=== PATIENT | male | born 1990 | race Hispanic/Latino ===

== ENCOUNTER 2020-06-24 23:16 | Inpatient (IN) | payer OTHER ==
[2020-06-25] MEDS ORDERED: Ketorolac Tromethamine 30 MG/ML VIAL ONE (00:13)
[2020-06-25 00:38] LABS: Hemoglobin 15.7 g/dL (14.0-18.0); Mean Corpuscular HGB CONC 34.6 g/dL (32.0-36.0); Mean Corpuscular Volume 98.3 fL (78.0-98.0); Mean Platelet Volume 6.2 fL (7.4-10.4); Platelet Count 239 thou/uL (130-400); RBC Distribution Width 11.4 % (11.5-14.5); White Blood Cell (WBC) Count 8.8 thou/uL (4.8-10.8)
[2020-06-25 00:55] LABS: ALT (SGPT) 21 U/L (8-55); AST (SGOT) 24 U/L (5-34); Albumin 3.8 g/dL (3.5-5.0); Alkaline Phosphatase 61 U/L (40-110); Anion Gap 14 mmol/L (10-20); BUN (Urea Nitrogen) 8 mg/dL (8.9-20.6); Bilirubin, Total 2.1 mg/dL (0.2-1.2); Calc. Creatinine Clearance 0 mL/min (70-130); Calcium 9.3 mg/dL (7.8-10.44); Carbon Dioxide 24 mmol/L (22-29); Chloride 103 mmol/L (98-107); Glucose 97 mg/dL (70-105); Potassium 3.3 mmol/L (3.5-5.1); Protein, Total 6.8 g/dL (6.0-8.3); Sodium 138 mmol/L (136-145)
[2020-06-25 00:58] LABS: Band 4 % (5-11); Lymphocytes 3 % (21-51); MDiff Complete? YES; Metamyelocyte 7 % (0-0); Neutrophil 86 % (42-75); Platelet Morphology Comment Appears Adequate
[2020-06-25] MEDS ORDERED: Ondansetron PF 4 MG/2 ML Vial ONE (01:41)
[2020-06-25] MEDS ORDERED: Piperacillin/Tazobactam 4.5 GM VIAL ONE (01:41)
[2020-06-25 04:29] VITALS: BMI 31.7
[2020-06-25] MEDS: Vancomycin 1.5 GRAM/300 ML BAG 1.5 GM in Premix Bag 1 BAG IVPB SCH ×2 (04:49→16:42)
[2020-06-25] MEDS: Sodium Chloride 0.9% 1,000 ML IV SCH ×2 (04:49→14:21)
[2020-06-25] MEDS: Enoxaparin Sodium 40 MG/0.4 ML SYRINGE SC SCH (08:17)
[2020-06-25 08:43] LABS: SARS-CoV-2 PCR by NAA Not Detected (NotDetected)
[2020-06-25] MEDS ORDERED: Vancomycin 1.5 GRAM/300 ML BAG 1.5 GM in Premix Bag 1 BAG IVPB SCH (09:00)
[2020-06-25] MEDS: Piperacillin/Tazobactam 4.5 GM in Sodium Chloride 0.9% 100 ML IVPB SCH ×2 (09:04→19:22)
[2020-06-25] MEDS: Acetaminophen 325 MG/10.15 ML UDCUP PO PRN ×2 (10:36→16:42)
[2020-06-25] MEDS ORDERED: Iopamidol-370 76% 500 ML 1 ML ONE (12:59)
[2020-06-25] MEDS: Ibuprofen 200 MG TAB PO PRN (14:25)
[2020-06-26] MEDS: Acetaminophen 325 MG/10.15 ML UDCUP PO PRN (00:22)
[2020-06-26] MEDS: Sodium Chloride 0.9% 1,000 ML IV SCH ×3 (00:23→16:22)
[2020-06-26] MEDS: Piperacillin/Tazobactam 4.5 GM in Sodium Chloride 0.9% 100 ML IVPB SCH ×2 (02:37→09:21)
[2020-06-26] MEDS: Vancomycin 1.5 GRAM/300 ML BAG 1.5 GM in Premix Bag 1 BAG IVPB SCH (05:47)
[2020-06-26] MEDS: Ibuprofen 200 MG TAB PO PRN (05:55)
[2020-06-26 06:08] LABS: #Lymphocytes 0.6 thou/uL (1.20-3.40); #Monocytes 0.8 thou/uL (0.11-0.59); #Neutrophils 10.2 thou/uL (1.40-6.50); %Basophils 0.1 % (0.0-1.0); %Eosinophils 0.1 % (0.0-10.0); %Lymphocytes 4.8 % (21.0-51.0); %Monocytes 6.8 % (0.0-10.0); %Neutrophils 88.2 % (42.0-75.0); Hemoglobin 13.3 g/dL (14.0-18.0); Mean Corpuscular HGB CONC 34.2 g/dL (32.0-36.0); Mean Corpuscular Volume 99.5 fL (78.0-98.0); Platelet Count 194 thou/uL (130-400); RBC Distribution Width 11.5 % (11.5-14.5); Red Blood Cell (RBC) Count 3.91 mill/uL (4.70-6.10); White Blood Cell (WBC) Count 11.6 thou/uL (4.8-10.8)
[2020-06-26 06:23] LABS: Anion Gap 11 mmol/L (10-20); BUN (Urea Nitrogen) 5 mg/dL (8.9-20.6); Calc. Creatinine Clearance 170 mL/min (70-130); Carbon Dioxide 22 mmol/L (22-29); Chloride 109 mmol/L (98-107); Glucose 157 mg/dL (70-105); Potassium 3.8 mmol/L (3.5-5.1); Sodium 138 mmol/L (136-145)
[2020-06-26] MEDS ORDERED: Ketorolac Tromethamine 30 MG/ML VIAL IVP SCH (08:15)
[2020-06-26] MEDS: Enoxaparin Sodium 40 MG/0.4 ML SYRINGE SC SCH ×2 (09:10→10:25)
[2020-06-26] MEDS ORDERED: Iopamidol-370 76% 500 ML 1 ML ONE (09:14)
[2020-06-26] MEDS: MEROPENEM 1 GM/50 ML 1 GM in Premix Bag 1 BAG IVPB SCH ×2 (13:02→21:35)
[2020-06-26] MEDS: Acetaminophen 650 MG/20.3 ML UDCUP PO PRN ×2 (16:09→21:35)
[2020-06-26] MEDS: Ketorolac Tromethamine 30 MG/ML VIAL IVP PRN (18:15)
[2020-06-26] MEDS: Temazepam 15 MG CAP PO PRN (21:35)
[2020-06-27] MEDS: Ketorolac Tromethamine 30 MG/ML VIAL IVP PRN ×2 (00:06→08:49)
[2020-06-27] MEDS: Sodium Chloride 0.9% 1,000 ML IV SCH ×4 (02:51→20:56)
[2020-06-27] MEDS: MEROPENEM 1 GM/50 ML 1 GM in Premix Bag 1 BAG IVPB SCH ×3 (04:21→20:54)
[2020-06-27 05:55] LABS: #Lymphocytes 0.8 thou/uL (1.20-3.40); #Monocytes 0.6 thou/uL (0.11-0.59); #Neutrophils 7.6 thou/uL (1.40-6.50); %Basophils 0.1 % (0.0-1.0); %Eosinophils 0.5 % (0.0-10.0); %Lymphocytes 8.6 % (21.0-51.0); %Monocytes 6.9 % (0.0-10.0); Hemoglobin 12.4 g/dL (14.0-18.0); Mean Corpuscular HGB CONC 33.9 g/dL (32.0-36.0); Mean Corpuscular Hemoglobin 33.5 pg (27.0-31.0); Mean Platelet Volume 6.8 fL (7.4-10.4); Platelet Count 205 thou/uL (130-400); RBC Distribution Width 11.4 % (11.5-14.5)
[2020-06-27 06:12] LABS: Anion Gap 13 mmol/L (10-20); BUN (Urea Nitrogen) 4 mg/dL (8.9-20.6); Calc. Creatinine Clearance 185 mL/min (70-130); Calcium 8.2 mg/dL (7.8-10.44); Carbon Dioxide 20 mmol/L (22-29); Chloride 110 mmol/L (98-107); Glucose 149 mg/dL (70-105); Potassium 3.6 mmol/L (3.5-5.1); Sodium 139 mmol/L (136-145)
[2020-06-27] MEDS ORDERED: Fioricet 325/50/40 mg Tablet PO SCH (08:45)
[2020-06-27] MEDS: Enoxaparin Sodium 40 MG/0.4 ML SYRINGE SC SCH (08:48)
[2020-06-27] MEDS: Fioricet 325/50/40 mg Tablet PO PRN ×2 (16:28→22:38)
[2020-06-27] MEDS: Temazepam 15 MG CAP PO PRN (22:38)
[2020-06-28] MEDS: MEROPENEM 1 GM/50 ML 1 GM in Premix Bag 1 BAG IVPB SCH ×3 (04:57→20:11)
[2020-06-28] MEDS: Sodium Chloride 0.9% 1,000 ML IV SCH ×3 (04:57→20:11)
[2020-06-28 08:12] LABS: #Lymphocytes 1.1 thou/uL (1.20-3.40); #Monocytes 0.8 thou/uL (0.11-0.59); #Neutrophils 5.8 thou/uL (1.40-6.50); %Basophils 0.6 % (0.0-1.0); %Eosinophils 0.4 % (0.0-10.0); %Lymphocytes 13.7 % (21.0-51.0); %Neutrophils 75.3 % (42.0-75.0); Hemoglobin 13.1 g/dL (14.0-18.0); Mean Corpuscular HGB CONC 33.9 g/dL (32.0-36.0); Mean Corpuscular Hemoglobin 33.2 pg (27.0-31.0); Mean Platelet Volume 6.7 fL (7.4-10.4); Platelet Count 256 thou/uL (130-400); RBC Distribution Width 11.6 % (11.5-14.5); Red Blood Cell (RBC) Count 3.95 mill/uL (4.70-6.10); White Blood Cell (WBC) Count 7.7 thou/uL (4.8-10.8)
[2020-06-28 08:28] LABS: Anion Gap 14 mmol/L (10-20); BUN (Urea Nitrogen) 6 mg/dL (8.9-20.6); Calc. Creatinine Clearance 160 mL/min (70-130); Calcium 8.7 mg/dL (7.8-10.44); Carbon Dioxide 23 mmol/L (22-29); Chloride 107 mmol/L (98-107); Glucose 98 mg/dL (70-105); Potassium 3.6 mmol/L (3.5-5.1); Sodium 140 mmol/L (136-145)
[2020-06-28] MEDS: Ketorolac Tromethamine 30 MG/ML VIAL IVP PRN (09:15)
[2020-06-28] MEDS: Enoxaparin Sodium 40 MG/0.4 ML SYRINGE SC SCH (09:17)
[2020-06-28] MEDS: Fioricet 325/50/40 mg Tablet PO PRN ×4 (09:27→22:31)
[2020-06-28] MEDS: Temazepam 15 MG CAP PO PRN (22:32)
[2020-06-29] MEDS ORDERED: diphenhydrAMINE 25 MG CAP PO SCH (01:15)
[2020-06-29] MEDS: Fioricet 325/50/40 mg Tablet PO PRN ×5 (01:58→22:46)
[2020-06-29] MEDS: Sodium Chloride 0.9% 1,000 ML IV SCH ×3 (05:03→18:02)
[2020-06-29] MEDS: MEROPENEM 1 GM/50 ML 1 GM in Premix Bag 1 BAG IVPB SCH ×3 (06:04→22:44)
[2020-06-29 08:31] LABS: #Basophils 0.1 thou/uL (0.0-0.2); #Eosinphils 0.1 thou/uL (0.0-0.7); #Lymphocytes 1.8 thou/uL (1.20-3.40); #Monocytes 1.2 thou/uL (0.11-0.59); #Neutrophils 6.1 thou/uL (1.40-6.50); %Basophils 0.7 % (0.0-1.0); %Lymphocytes 19.4 % (21.0-51.0); %Monocytes 13.3 % (0.0-10.0); %Neutrophils 65.6 % (42.0-75.0); Hemoglobin 13.6 g/dL (14.0-18.0); Mean Corpuscular HGB CONC 33.2 g/dL (32.0-36.0); Mean Corpuscular Hemoglobin 32.2 pg (27.0-31.0); Mean Corpuscular Volume 97.2 fL (78.0-98.0); Mean Platelet Volume 6.2 fL (7.4-10.4); Platelet Count 291 thou/uL (130-400); RBC Distribution Width 11.6 % (11.5-14.5); Red Blood Cell (RBC) Count 4.22 mill/uL (4.70-6.10); White Blood Cell (WBC) Count 9.3 thou/uL (4.8-10.8)
[2020-06-29 08:51] LABS: Anion Gap 13 mmol/L (10-20); BUN (Urea Nitrogen) 7 mg/dL (8.9-20.6); Calc. Creatinine Clearance 176 mL/min (70-130); Calcium 9.1 mg/dL (7.8-10.44); Carbon Dioxide 25 mmol/L (22-29); Chloride 106 mmol/L (98-107); Glucose 88 mg/dL (70-105); Potassium 3.5 mmol/L (3.5-5.1); Sodium 140 mmol/L (136-145)
[2020-06-29] MEDS: Enoxaparin Sodium 40 MG/0.4 ML SYRINGE SC SCH (09:18)
[2020-06-29] MEDS: Temazepam 15 MG CAP PO PRN (22:44)
[2020-06-30] MEDS: MEROPENEM 1 GM/50 ML 1 GM in Premix Bag 1 BAG IVPB SCH ×3 (05:07→19:57)
[2020-06-30] MEDS: Sodium Chloride 0.9% 1,000 ML IV SCH ×3 (05:07→19:57)
[2020-06-30] MEDS: Fioricet 325/50/40 mg Tablet PO PRN ×3 (08:23→21:37)
[2020-06-30] MEDS: Enoxaparin Sodium 40 MG/0.4 ML SYRINGE SC SCH (08:24)
[2020-06-30 08:33] LABS: #Basophils 0.1 thou/uL (0.0-0.2); #Eosinphils 0.1 thou/uL (0.0-0.7); #Lymphocytes 2.2 thou/uL (1.20-3.40); #Monocytes 1.1 thou/uL (0.11-0.59); #Neutrophils 6.6 thou/uL (1.40-6.50); %Basophils 0.6 % (0.0-1.0); %Eosinophils 1.1 % (0.0-10.0); %Lymphocytes 21.6 % (21.0-51.0); %Monocytes 11.1 % (0.0-10.0); %Neutrophils 65.6 % (42.0-75.0); Hemoglobin 14.2 g/dL (14.0-18.0); Mean Corpuscular HGB CONC 33.7 g/dL (32.0-36.0); Mean Corpuscular Hemoglobin 32.7 pg (27.0-31.0); Mean Corpuscular Volume 96.9 fL (78.0-98.0); Mean Platelet Volume 6.1 fL (7.4-10.4); Platelet Count 331 thou/uL (130-400); RBC Distribution Width 11.6 % (11.5-14.5); Red Blood Cell (RBC) Count 4.35 mill/uL (4.70-6.10); White Blood Cell (WBC) Count 10.1 thou/uL (4.8-10.8)
[2020-06-30 08:52] LABS: Anion Gap 13 mmol/L (10-20); BUN (Urea Nitrogen) 8 mg/dL (8.9-20.6); Calc. Creatinine Clearance 176 mL/min (70-130); Calcium 9.1 mg/dL (7.8-10.44); Carbon Dioxide 22 mmol/L (22-29); Chloride 107 mmol/L (98-107); Glucose 89 mg/dL (70-105); Sodium 138 mmol/L (136-145)
[2020-06-30] MEDS: Temazepam 15 MG CAP PO PRN (21:37)
[2020-07-01] MEDS: Sodium Chloride 0.9% 1,000 ML IV SCH ×3 (03:36→20:12)
[2020-07-01] MEDS: MEROPENEM 1 GM/50 ML 1 GM in Premix Bag 1 BAG IVPB SCH ×3 (04:24→20:13)
[2020-07-01] MEDS: Fioricet 325/50/40 mg Tablet PO PRN ×3 (07:07→20:11)
[2020-07-01] MEDS: Enoxaparin Sodium 40 MG/0.4 ML SYRINGE SC SCH (07:59)
[2020-07-01] MEDS: Temazepam 15 MG CAP PO PRN (21:36)
[2020-07-02] MEDS: Sodium Chloride 0.9% 1,000 ML IV SCH ×3 (03:05→22:38)
[2020-07-02] MEDS: MEROPENEM 1 GM/50 ML 1 GM in Premix Bag 1 BAG IVPB SCH ×3 (05:28→20:43)
[2020-07-02] MEDS: Enoxaparin Sodium 40 MG/0.4 ML SYRINGE SC SCH (07:58)
[2020-07-02] MEDS: Fioricet 325/50/40 mg Tablet PO PRN ×2 (07:59→17:50)
[2020-07-02] MEDS: Temazepam 15 MG CAP PO PRN (22:37)
[2020-07-03] MEDS: Acetaminophen 650 MG/20.3 ML UDCUP PO PRN (00:33)
[2020-07-03] MEDS: MEROPENEM 1 GM/50 ML 1 GM in Premix Bag 1 BAG IVPB SCH ×3 (04:25→20:32)
[2020-07-03] MEDS: Fioricet 325/50/40 mg Tablet PO PRN ×2 (09:05→21:59)
[2020-07-03] MEDS: Enoxaparin Sodium 40 MG/0.4 ML SYRINGE SC SCH (09:05)
[2020-07-03] MEDS: Sodium Chloride 0.9% 1,000 ML IV SCH ×3 (09:05→19:47)
[2020-07-03] MEDS: Temazepam 15 MG CAP PO PRN (21:59)
[2020-07-04] MEDS: Sodium Chloride 0.9% 1,000 ML IV SCH ×2 (04:08→11:04)
[2020-07-04] MEDS: MEROPENEM 1 GM/50 ML 1 GM in Premix Bag 1 BAG IVPB SCH ×2 (05:30→13:35)
[2020-07-04] MEDS: Enoxaparin Sodium 40 MG/0.4 ML SYRINGE SC SCH (08:45)
[2020-07-04] MEDS: Fioricet 325/50/40 mg Tablet PO PRN (11:03)
[2020-07-04 11:36] VITALS: TEMP 97.6
[2020-07-04 15:41] VITALS: BP 115/75
== END 2020-07-04 17:59 | disposition home or self-care (01) | DRG 301 ==
LOC: ERS 23:16 → SURG A 06-25 02:29 → OBSVTOIN 06-25 02:29
PROVIDERS: ADMIT Internal Medicine; ATTEND Internal Medicine
DX: I80.8 Phlebitis and thrombophlebitis of other sites (principal); R59.0 Localized enlarged lymph nodes; J02.9 Acute pharyngitis, unspecified; K11.20 Sialoadenitis, unspecified; Z20.822 Contact with and (suspected) exposure to COVID-19; Z98.890 Other specified postprocedural states
CPT/HCPCS: 36415; 70491; 71260; 76536; 76705; 80048; 80053; 83605; 83735; 85025; 87040; 87635; 94760; 96365; 96366; 96367; 96372; 96375; 96376; G0378; J1650; J1885; J2185; J2405; J2543; J3370; J3490; Q0163; Q9967; U0003; U0005

== ENCOUNTER 2020-08-08 13:50 | Outpatient (CLI) | payer OTHER | END 2020-08-08 13:51 | disposition home or self-care (01) | LOC: BICULT 13:50 | PROVIDERS: ATTEND Internal Medicine Infectious Disease | DX: R51.9 Headache, unspecified (principal); H53.8 Other visual disturbances; I82.C11 Acute embolism and thrombosis of right internal jugular vein | CPT/HCPCS: 70450 ==

== ENCOUNTER 2020-09-13 20:22 | Emergency (ER) | payer OTHER ==
[2020-09-13] MEDS ORDERED: Ibuprofen 200 MG TAB ONE (22:11)
== END 2020-09-13 22:17 | disposition home or self-care (01) ==
LOC: ERS 20:22
DX: S29.011A Strain of muscle and tendon of front wall of thorax, initial encounter (principal); X58.XXXA Exposure to other specified factors, initial encounter
CPT/HCPCS: 99283

== ENCOUNTER 2022-06-04 08:41 | Outpatient (CLI) | payer OTHER ==
[2022-06-04 10:04] LABS: #Basophils 0.1 10x3/uL (0.0-0.2); #Eosinphils 0.1 10x3/uL (0.0-0.5); #Monocytes 0.4 10x3/uL (0.0-1.1); #Neutrophils 3.4 10x3/uL (1.5-8.4); %Basophils 0.9 % (0.0-2.0); %Eosinophils 1.1 % (0.0-6.0); %Lymphocytes 29.7 % (18.0-47.0); %Monocytes 6.5 % (0.0-10.0); %Neutrophils 61.4 % (40.0-75.0); Hemoglobin 16.2 g/dL (13.5-17.5); Mean Corpuscular HGB CONC 35.6 g/dL (32.0-36.0); Mean Corpuscular Hemoglobin 31.5 pg (27.0-33.0); Mean Corpuscular Volume 88.5 fl (81.2-95.1); Mean Platelet Volume 8.9 fl (7.4-10.4); Platelet Count 329 10x3/uL (150-450); RBC Distribution Width 11.4 % (11.5-14.5); Red Blood Cell (RBC) Count 5.14 10x6/uL (4.32-5.72); White Blood Cell (WBC) Count 5.5 10x3/uL (3.5-10.5)
[2022-06-04 10:18] LABS: Anion Gap 16 mmol/L (10-20); BUN (Urea Nitrogen) 16 mg/dL (8.9-20.6); Calc. Creatinine Clearance 0 mL/min (70-130); Calcium 9.3 mg/dL (7.8-10.44); Carbon Dioxide 23 mmol/L (22-29); Chloride 106 mmol/L (98-107); Estimated GFR 76; Glucose 98 mg/dL (70-105); Potassium 4.5 mmol/L (3.5-5.1); Sodium 140 mmol/L (136-145)
== END 2022-06-04 08:42 | disposition home or self-care (01) ==
LOC: LABBT 08:41
PROVIDERS: ATTEND Surgery
DX: Z01.812 Encounter for preprocedural laboratory examination (principal); K62.0 Anal polyp
CPT/HCPCS: 80048; 85025

== ENCOUNTER 2022-06-12 07:17 | Day surgery (SDC) | payer OTHER ==
[2022-06-12] MEDS ORDERED: Lidocaine Jelly 2% Urojet 10 ML ONE (08:08)
[2022-06-12] MEDS ORDERED: Lidocaine 2% 6 ML SYR ONE (08:08)
[2022-06-12] MEDS ORDERED: Bupivacaine 0.25% HCL 30 ML VIAL ONE (08:08)
[2022-06-12] MEDS ORDERED: EPINEPHrine 1 MG/ML AMP ONE (08:08)
[2022-06-12] MEDS ORDERED: cefOXitin 2 GM VIAL ONE (08:27)
[2022-06-12] MEDS ORDERED: Sodium Chloride 0.9% 100 ML ONE (08:27)
[2022-06-12] MEDS ORDERED: fentaNYL 50 mcg/mL 1 mL Vial ONE (08:50)
[2022-06-12] MEDS ORDERED: PROPOFOL 200 MG/20 ML VIAL ONE (09:00)
[2022-06-12] MEDS ORDERED: Ketorolac Tromethamine 30 MG/ML VIAL ONE (09:00)
[2022-06-12] MEDS ORDERED: Ondansetron PF 4 MG/2 ML Vial ONE (09:00)
[2022-06-12] MEDS ORDERED: Dexamethasone 20 MG/5 ML VIAL ONE (09:00)
[2022-06-12] MEDS ORDERED: HYDROcodone/Acetaminophen 5/325 mg Tablet ONE (11:12)
== END 2022-06-12 11:55 | disposition home or self-care (01) ==
LOC: SDC 07:17
PROVIDERS: ATTEND Surgery
PROC: 0DQQ7ZZ Repair Anus, Via Natural or Artificial Opening (ICD-10-PCS; principal; 2022-06-12)
PROC: 0DBQ7ZX Excision of Anus, Via Natural or Artificial Opening, Diagnostic (ICD-10-PCS; principal; 2022-06-12)
DX: K62.0 Anal polyp (principal); K60.3 Anal fistula
CPT/HCPCS: 88305; J0171; J0694; J1100; J1885; J2001; J2405; J2704; J3010; J3490; S0020